=== PATIENT | female | born 1970 | race Caucasian/White ===

== ENCOUNTER → 2016-08-09 | Outpatient (CLI) | payer MEDICAID ==
--- NOTE | 2016-08-09 22:42 | MR ---
EXAMINATION TYPE: MR brain wo/w con DATE OF EXAM: 08/09/2016 COMPARISON: NONE HISTORY: severe headaches CONTRAST: Performed utilizing 20 mL intravenous MultiHance gadolinium contrast. TECHNIQUE: Multiplanar, multiecho imaging on a 3.0 Janice magnet is performed through the brain. Stud y is performed within 24 hours of arrival to the hospital. The craniovertebral junction is normal. The pituitary is normal. Diffusion-weighted imaging is performed. No abnormal hyperintensity is present to suggest an acute i ntracranial infarct or acute ischemic change. No suspicious signal abnormality is evident. Ventricles and sulci are appropriate for the patient age. Some minimal fluid is within the inferior right mastoid air cell. Mastoid air cells are otherwise lee ann ar. Paranasal sinuses are clear. IMPRESSIONS: 1. Normal pre and postcontrast MRI brain
== END | disposition home or self-care (01) ==
LOC: RADMRIMAIN 17:33
PROVIDERS: ATTEND Internal Medicine
DX: G43.909 Migraine, unspecified, not intractable, without status migrainosus (principal)
CPT/HCPCS: 70553; A9577